=== PATIENT | male | born 1955 | race Hispanic/Latino ===

== ENCOUNTER 2022-07-23 08:07 | Outpatient (CLI) | payer OTHER ==
--- NOTE | 2022-07-23 10:28 | Vascular Lab Report ---
ULTRASOUND AORTA AND ILIAC ARTERIES INDICATION / CLINICAL INFORMATION: I70.0 ATHEROSCLEROSIS. ^atherosclerosis of aorta; abdominal pain. hx of cabg/cad/stents (on Plavix)_,htn,hyperlipidemia,previous smoker 30yrs.<1ppd. TECHNIQUE: B-mode and Doppler imaging was used to evaluate the aorta and iliac arteries. COMPARISON: None available. FINDINGS: Mild diffuse atherosclerotic plaque PROXIMAL ABDOMINAL AORTA (cm): 2.1 x 2.3 MID ABDOMINAL AORTA (cm): 2.4 x 2.5 DISTAL ABDOMINAL AORTA (cm): 2.2 x 2.4 RIGHT ILIAC ARTERY (cm): 1.0 x 0.9 LEFT ILIAC ARTERY (cm): 1.0 x 0.8 ADDITIONAL FINDINGS: Visual narrowing and elevated velocity of the origin of the superior mesenteric artery with maximal velocity of 559 cm/s. Mild poststenotic dilatation. IMPRESSION: 1. No sonographic evidence for AAA. 2. No significant iliac artery stenosis. 3. 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 FOLLOW-UP RECOMMENDATION: Aortic diameter less than 3.0 cm = Optional follow-up ultrasound in 3 years. Reference: The Society for Vascular Surgery practice guidelines on the care of patients with an abdom inal aortic aneurysm. SVS guidelines on AAA can be found online: [email or web address].org/article/[email or web address]/fulltext Signer Name: Ofelia Lerma MD Signed: 07/23/2022 10:24 AM Workstation Name: [email or web address]
== END 2022-07-23 08:08 | disposition home or self-care (01) ==
LOC: VAS 08:07
DX: I70.0 Atherosclerosis of aorta (principal); I73.9 Peripheral vascular disease, unspecified
CPT/HCPCS: 93979